=== PATIENT | female | born 1955 | race American Indian/Alaskan Native ===

== ENCOUNTER 2017-03-04 11:00 | Outpatient (CLI) | payer MEDICAID | END 2017-03-04 11:01 | disposition home or self-care (01) | LOC: SLR 11:00 | PROVIDERS: ATTEND Specialist | DX: G47.30 Sleep apnea, unspecified (principal); E66.9 Obesity, unspecified | CPT/HCPCS: 95810 ==

== ENCOUNTER 2017-03-12 11:00 | Outpatient (CLI) | payer MEDICAID | END 2017-03-12 11:01 | disposition home or self-care (01) | LOC: SLR 11:00 | PROVIDERS: ATTEND Specialist | DX: G47.33 Obstructive sleep apnea (adult) (pediatric) (principal) | CPT/HCPCS: 95811 ==

== ENCOUNTER 2017-11-25 06:34 | Day surgery (SDC) | payer MEDICAID ==
[~2017-11-25 06:34] MED LIST: NACL 0.9% 1000 ML 1,000 ML IV SCH
[2017-11-25] MEDS ORDERED: WATER FOR IRRIG STERILE IR ONE ×2 (07:27→15:58)
[2017-11-25] MEDS ORDERED: HURRICAINE ONE 20% TOPICAL SPRAY MM ×2 (07:28→07:42)
[2017-11-25] MEDS ORDERED: DIPRIVAN 10 MG/ML IV ONE (07:47)
--- NOTE | 2017-11-25 08:00 | Operative Report ---
Operative Report Operative Report: OPERATIVE REPORT - EGD DATE 11/25/17 SURGERY: Upper endoscopy. SURGEON: Dr. Connelly CHHA: Sharita Gracia D.O PRE OP DX: Dyspepsia, morbid obesity POST OP DX: Retained food TYPE OF ANESTHESIA: MAC. ESTIMATED BLOOD LOSS: None. COMPLICATIONS: Non- diagnostic EGD due to retained food SPECIMENS REMOVED: None. FINDINGS: 1. Retained food in the stomach. INDICATIONS:INDICATION FOR PROCEDURE: Patient is a 62-year-old female with a long history of morbid obesity. She is planned to have a weight loss procedure and is here for preoperative planning EGD. PROCEDURE DETAILS: After consent was reviewed, patient was taken back to the operating room where patient was placed in the left lateral decubitus position and a bite block was placed in the mouth. After a time-out was called, MAC anesthesia was initiated. I then passed the endoscope into her oropharynx, into her esophagus, visualized the entire esophagus, which was all within normal limits. I then visualized the stomach which had large amount of retained thick semisolid food. The food could not be suctioned. The procedure was aborted due to retained food and unable to visualized the stomach. I then desufflated the stomach and removed the endoscope. Patient tolerated procedure well and was transferred to recovery room in good and stable condition. Her EGD will be re-scheduled for the day of her procedure.
--- NOTE | 2017-11-25 08:01 | Discharge Summary ---
Providers - Providers Attending physician: MARIAM RÍOS Primary care physician: DAE POLK Hospitalization Condition: Good Hospital course: 62 y.o. F presented to endoscopy for EGD for upcoming bariatric surgery. Her EGD was non diagnostic due to retained food. Disposition: DC-01 TO HOME OR SELFCARE Core Measure Documentation - Palliative Care Palliative Care/ Comfort Measures: Not Applicable - Core Measures Any of the following diagnoses?: none Exam - Physical Exam Narrative exam: no change from prior - Constitutional Vitals: Temp Pulse Resp BP Pulse Ox 98.2 F 68 18 147/86 99 11/25/17 07:36 11/25/17 07:36 11/25/17 07:36 11/25/17 07:36 11/25/17 07:36 Plan Follow up with: DAE POLK MD [Primary Care Provider] - 7 Days
[2017-11-25 08:30] VITALS: BP 130/77
--- NOTE | 2017-11-25 09:11 | Anesthesia Consultation ---
Anesthesia Consult and Med Hx Date of service: 11/25/17 - Airway Anesthetic Teeth Evaluation: Poor ROM Head & Neck: Adequate Mental/Hyoid Distance: Adequate Mallampati Class: Class III Intubation Access Assessment: Possibly Difficult - Pulmonary Exam CTA: Yes - Cardiac Exam Cardiac Exam: RRR - Pre-Operative Health Status ASA Pre-Surgery Classification: ASA3 Proposed Anesthetic Plan: MAC - Pulmonary SOB: Yes Hx Sleep Apnea: Yes - Cardiovascular System Hx Hypertension: Yes - Endocrine Hx Non-Insulin Dependent Diabetes: Yes - Other Systems Hx Obesity: Yes
--- NOTE | 2017-11-25 09:12 | Anesthesia Day of Surgery ---
Anesthesia Day of Surgery - Day of Surgery Patient Examined: Yes Patient H&P Reviewed: Yes Patient is NPO: Yes
[2017-11-25] MEDS ORDERED: HURRICAINE ONE 20% TOPICAL SPRAY MM NR (11:00)
== END 2017-11-25 06:35 | disposition home or self-care (01) ==
LOC: GIO 06:34
PROVIDERS: ATTEND Specialist
DX: T18.2XXA Foreign body in stomach, initial encounter (principal); I10 Essential (primary) hypertension; E11.9 Type 2 diabetes mellitus without complications; G47.30 Sleep apnea, unspecified; E66.01 Morbid (severe) obesity due to excess calories; Z68.43 Body mass index [BMI] 50.0-59.9, adult; Z90.710 Acquired absence of both cervix and uterus; Z98.890 Other specified postprocedural states; Z79.84 Long term (current) use of oral hypoglycemic drugs; Z79.899 Other long term (current) drug therapy
CPT/HCPCS: 43235; 82962; J2704; J7030